=== PATIENT | female | born 1945 | race Caucasian/White ===

== ENCOUNTER 2022-06-17 13:01 | Emergency (ER) | payer OTHER, BC, MEDICAID ==
[~2022-06-17] VITALS: Ht 170.2 cm; Wt 81.6 kg
--- NOTE | 2022-06-17 13:03 | NUR ---
[pt to er bed 11 via amr
[2022-06-17 13:04] VITALS: BP 134/86
[2022-06-17] MEDS ORDERED: SULF-59 PO (13:45)
[2022-06-17] MEDS ORDERED: SULFAMETH/TRIMETH DS 800/160MG 1 TAB PO ONE (13:50)
--- NOTE | 2022-06-17 13:51 | NUR ---
R UPPER ARM, R POSTERIOR FOREARM, R HAND IRRIGATED WITH BETADINE AND NORMAL SALINE. DRESSED WITH NON ADHERENTS AND WRAPPED WITH ROLLER GAUZE.
[2022-06-17] MEDS ORDERED: BACITRACIN OINT 500 UNITS/GM PKT TP ONE (14:15)
--- NOTE | 2022-06-17 14:19 | NUR ---
SPOKE TO DUSTIN RN AT [facility] REPORT GIVEN FOR CONTINUATION OF CARE STABLE ON DC
[2022-06-17 14:20] VITALS: BP 146/80
== END 2022-06-17 14:20 | disposition home or self-care (01) ==
LOC: MED 13:01
DX: S41.101A Unspecified open wound of right upper arm, initial encounter (principal); I10 Essential (primary) hypertension; Z79.899 Other long term (current) drug therapy; X58.XXXA Exposure to other specified factors, initial encounter; Y93.89 Activity, other specified; Y92.89 Other specified places as the place of occurrence of the external cause; Y99.8 Other external cause status
CPT/HCPCS: 99283